=== PATIENT | male | born 1950 | race Caucasian/White ===

== ENCOUNTER 2018-07-22 20:13 | Inpatient (IN) | payer MEDICARE, BC ==
[~2018-07-22] VITALS: Ht 185.4 cm; Wt 66.0 kg
--- NOTE | 2018-07-22 20:15 | NUR ---
BIBA [facility] FOR ABNORMAL CXR SHOWS PNA, FEVER W/ LOW 02 SAT ON RA 88%. NAD NOTED. PT AAO X4, DOES NOTE SOME SOB, BUT STATES HX OF COPD. 2L NC PLACED ON PT. NO OTHER COMPLAINTS.
--- NOTE | 2018-07-22 20:36 | NUR ---
BLOOD DRAWN SENT TO LAB
[2018-07-22] MEDS ORDERED: ALBUTEROL FS 2.5 MG/3 ML VIAL.NEB NEB ONE (21:30)
[2018-07-22] MEDS ORDERED: IPRATROPIUM NEB FS 0.5 MG/2.5 ML AMPUL.NEB NEB ONE (21:30)
--- NOTE | 2018-07-22 21:37 | NUR ---
PAGED RT FOR BREATHING TX
[2018-07-22] MEDS ORDERED: IPRATROPIUM NEB FS 0.5 MG/2.5 ML AMPUL.NEB ONE (21:56)
[2018-07-22] MEDS ORDERED: ALBUTEROL FS 2.5 MG/3 ML VIAL.NEB ONE (21:56)
[2018-07-22] MEDS ORDERED: AZITHROMYCIN 250 MG TABLET PO ONE (22:00)
[2018-07-22] MEDS ORDERED: SULFAMETHOXAZOLE IV ONE (22:00)
[2018-07-22] MEDS ORDERED: CEFTRIAXONE 1GM BAG (ER ONLY) 1 GM/50 ML PIGGYBACK IV ONE (22:00)
[2018-07-22] MEDS ORDERED: TRIMETHOPRIM IV ONE (22:00)
[2018-07-22] MEDS ORDERED: D5W IV ONE (22:00)
[2018-07-22 22:03] LABS: CALCIUM, SERUM 8.2 mg/dL (8.5-10.1); CARBON DIOXIDE 34 mmol/L (21-32); CHLORIDE 87 mmol/L (98-107); CREATININE 0.8 mg/dL (0.6-1.3); GLUCOSE 96 mg/dL (74-106); SODIUM SERUM 124 mmol/L (136-145); UREA NITROGEN, BLOOD 16 mg/dL (7-18)
[2018-07-22 22:04] LABS: BASOPHILS % (AUTO) 0.5 % (0.0-2.0); EOSINOPHILS % (AUTO) 2.1 % (0.0-6.0); HEMATOCRIT 33 % (39-51); HEMOGLOBIN 10.9 g/dL (13.5-17.5); LYMPHOCYTES % (AUTO) 16.7 % (20.0-44.0); MEAN CORPUSCULAR HGB CONC 33 g/dl (31.0-36.0); MEAN CORPUSCULAR VOLUME 90 fL (80-96); MONOCYTES # (AUTO) 0.8 /CMM (0.1-1.30); MONOCYTES % (AUTO) 13.1 % (2.0-12.0); NEUTROPHILS # (AUTO) 4.2 /CMM (1.8-8.9); NEUTROPHILS % (AUTO) 67.6 % (43.0-81.0); PLATELET COUNT (AUTO) 291 /CMM (150-450); RED BLOOD CELL COUNT(AUTO) 3.65 MIL/uL (4.5-6.0); WHITE BLOOD COUNT (AUTO) 6.3 K/uL (4.3-11.0)
[2018-07-22] MEDS ORDERED: CEFTRIAXONE 1GM BAG (ER ONLY) 50 ML IV ONE (22:07)
[2018-07-22] MEDS ORDERED: AZITHROMYCIN 500 MG VIAL ONE (22:07)
[2018-07-22] MEDS ORDERED: SULFAMETHOXAZOLE/TRIMETHOPRIM 10 ML VIAL IV ONE (22:07)
[2018-07-22] MEDS ORDERED: AZITHROMYCIN 250 MG TABLET ONE (22:08)
[2018-07-22 22:16] LABS: ALANINE AMINOTRANSFERASE 16 U/L (12-78); ALBUMIN 2.7 g/dL (3.4-5.0); ALKALINE PHOSPHATASE 95 U/L (46-116); ASPARTATE AMINOTRANSFERASE 28 U/L (15-37); B-TYPE NATRIURETIC PEPTIDE 551 PG/ML (0-125); BILIRUBIN,DIRECT 0.1 mg/dL (0.0-0.2); BILIRUBIN,TOTAL 0.4 mg/dL (0.2-1.0); TOTAL PROTEIN, SERUM 6.5 g/dL (6.4-8.2)
--- NOTE | 2018-07-22 22:53 | NUR ---
PAGED FOR DR SCHILLING AND ADV DR WILL CALL BACK
[2018-07-22] MEDS ORDERED: ALBU18HF2 INH (22:58)
[2018-07-22] MEDS ORDERED: DOCU-141 PO (22:58)
[2018-07-22] MEDS ORDERED: ARIP5TAB10 PO (22:58)
[2018-07-22] MEDS ORDERED: UMEC1BLS IH (22:58)
--- NOTE | 2018-07-22 22:59 | NUR ---
CALLED NURSE SUP FOR TELE BED
[2018-07-22] MEDS ORDERED: ACET325C5 PO (23:09)
[2018-07-22] MEDS ORDERED: MIRT15TA PO (23:09)
[2018-07-22] MEDS ORDERED: TRAM50TA PO (23:09)
[2018-07-22] MEDS ORDERED: MAG30ORA PO (23:09)
[2018-07-22] MEDS ORDERED: RITO100T PO (23:09)
[2018-07-22] MEDS ORDERED: NAPR-1192 PO (23:09)
[2018-07-22] MEDS ORDERED: CHOL200026 PO (23:09)
[2018-07-22] MEDS ORDERED: EMTR1TAB18 PO (23:09)
[2018-07-22] MEDS ORDERED: DARU600T2 PO (23:09)
[2018-07-22] MEDS ORDERED: BISA10SU61 RC (23:09)
[2018-07-22] MEDS ORDERED: ATOR10TA PO (23:09)
[2018-07-22] MEDS ORDERED: NA P133E RC (23:09)
[2018-07-22] MEDS ORDERED: ALEN70TA3 PO (23:09)
[2018-07-22] MEDS ORDERED: FAMO20TA8 PO (23:09)
[2018-07-22] MEDS ORDERED: DIVA250T PO (23:09)
[2018-07-22] MEDS ORDERED: GABA300C PO (23:09)
--- NOTE | 2018-07-22 23:23 | NUR ---
BED 307-2
--- NOTE | 2018-07-22 23:25 | NUR ---
CALLED APPLIED BEHAVIOR SPECIALIST W/ ROOM NUMBER
--- NOTE | 2018-07-22 23:55 | NUR ---
RECEIVED REPORT FROM EMILIO BURDEN FOR CANDE. PT BEING PREPARED FOR ADMISSION TO TELEMETRY
--- NOTE | 2018-07-22 23:57 | NUR ---
RN OPEN NOTES RECEIVED PATIENT FROM ER VIA NGOC. A/O X3. NO SIGNS OF DISTRESS OR DISCOMFORT. BREATHING EVEN AND UNLABORED. ON 2LPM 02 VIA NC. IV ACCESS IN RAC, PATENT AND INTACT, NO SIGNS OF REDNESS OR INFILTRATION. ORIENTED PATIENT TO UNIT AND ROOM. ATTACHED TO TELE MONITOR WITH SR W/BBB HR 77. NO SKIN ISSUES NOTED. BED IN LOW LOCKED POSITION WITH SIDE RAILS X2. CALL LIGHT WITHIN REACH. WILL CONTINUE TO MONITOR. PATIENT HAS POLST IN CHART THAT SAYS HE'S DNR/DNI DATED JUNE 2018 BUT PATIENT STATES HE WANTS TO BE FULL CODE AT THIS TIME. ORDER PUT IN FOR SS CONSULT TO FURTHER DISCUSS ADV. DIRECTIVE.
[2018-07-23] VITALS: BP_SYST 115; BP_SYST 126; BP_DIAS 67; BP_DIAS 75
[2018-07-23 04:00] VITALS: BP_SYST 115; BP_DIAS 65; BP_DIAS 67
[2018-07-23 06:21] LABS: BASOPHILS % (AUTO) 0.5 % (0.0-2.0); EOSINOPHILS % (AUTO) 3.6 % (0.0-6.0); HEMATOCRIT 32 % (39-51); LYMPHOCYTES # (AUTO) 0.8 /CMM (0.8-4.8); LYMPHOCYTES % (AUTO) 17.9 % (20.0-44.0); MEAN CORPUSCULAR HGB CONC 34 g/dl (31.0-36.0); MEAN CORPUSCULAR VOLUME 89 fL (80-96); MONOCYTES # (AUTO) 0.8 /CMM (0.1-1.30); MONOCYTES % (AUTO) 16.2 % (2.0-12.0); NEUTROPHILS # (AUTO) 2.9 /CMM (1.8-8.9); NEUTROPHILS % (AUTO) 61.8 % (43.0-81.0); PLATELET COUNT (AUTO) 258 /CMM (150-450); RED BLOOD CELL COUNT(AUTO) 3.65 MIL/uL (4.5-6.0); WHITE BLOOD COUNT (AUTO) 4.7 K/uL (4.3-11.0)
[2018-07-23 06:34] LABS: CALCIUM, SERUM 8.4 mg/dL (8.5-10.1); CREATININE 0.7 mg/dL (0.6-1.3); MAGNESIUM 1.7 mg/dL (1.8-2.4); PHOSPHORUS 3.2 mg/dL (2.5-4.9); POTASSIUM 5.1 mmol/L (3.5-5.1)
--- NOTE | 2018-07-23 06:44 | NUR ---
RN CLOSING NOTES PATIENT RESTING IN BED, EASILY AROUSABLE. A/O X3. NO SIGNS OF DISTRESS OR DISCOMFORT. BREATHING EVEN AND UNLABORED. ON 2LPM 02 VIA NC. IV ACCESS IN RAC, PATENT AND INTACT, NO SIGNS OF REDNESS OR INFILTRATION. ON TELE MONITOR WITH SR W/BBB HR 75. ALL NEEDS MET. NO SIGNIFICANT CHANGES THROUGH THE NIGHT. BED IN LOW LOCKED POSITION WITH SIDE RAILS X2. CALL LIGHT WITHIN REACH. WILL ENDORSE TO AM SHIFT FOR CANDE.
[2018-07-23] MEDS ORDERED: ALEN70TA6 PO (07:46)
[2018-07-23] MEDS ORDERED: MAGN400O6 PO (07:46)
[2018-07-23 08:00] VITALS: BP 130/81
[2018-07-23] MEDS: SULFAMETHOXAZOLE/TRIMETHOPRIM 20 ML in IV D5W 500 ML IV SCH ×3 (08:22→23:19)
[2018-07-23] MEDS ORDERED: ALBUTEROL FS 2.5 MG/3 ML VIAL.NEB NEB PRN (08:38)
[2018-07-23] MEDS: AZITHROMYCIN 250 MG TABLET PO SCH (08:54)
[2018-07-23] MEDS: ARIPIPRAZOLE 5 MG TABLET PO SCH (08:55)
[2018-07-23] MEDS: DOCUSATE SODIUM 100 MG CAPSULE PO SCH (08:55)
[2018-07-23] MEDS: FAMOTIDINE (20 MG) 20 MG TABLET PO SCH ×2 (08:55→17:51)
[2018-07-23] MEDS: GABAPENTIN 300 MG CAPSULE PO SCH ×2 (08:56→17:52)
[2018-07-23] MEDS: MAG HYDROX/AL HYDROX/SIMETH 30 ML UDC PO SCH (08:56)
[2018-07-23] MEDS ORDERED: MAGNESIUM HYDROXIDE 30 ML UDC PO PRN (09:00)
[2018-07-23] MEDS ORDERED: TRAMADOL HCL 50 MG TABLET PO PRN (09:00)
[2018-07-23] MEDS ORDERED: ACETAMINOPHEN 325 MG TABLET PO PRN (09:00)
[2018-07-23] MEDS ORDERED: NA PHOS,M-B/NA PHOS,DI-BA 1 EA ENEMA RC PRN (09:00)
[2018-07-23] MEDS ORDERED: BISACODYL SUPP (10 MG) 10 MG/SUPP.RECT SUPP.RECT RC PRN (09:00)
--- NOTE | 2018-07-23 10:30 | NUR ---
amrik fernandez mgr. contacting pt's facility to obtain hiv meds and depakote.
[2018-07-23] MEDS: NAPROXEN 375 MG TABLET PO SCH ×2 (11:14→17:52)
[2018-07-23] MEDS: Magnesium 1GM/D5W 100ML PREMIX 100 ML IV SCH ×2 (11:39→12:50)
--- NOTE | 2018-07-23 15:00 | NUR ---
hiv meds ritanovir,odefsy and depakote brought in. amrik fernandez mgr. contacting facility again to bring in other hiv med.
--- NOTE | 2018-07-23 15:03 | NUR ---
Social service consult requested by Drew Jesus DO for history of drug use and pt. coming from a rehab center. Pt. is a 68 year old male who was admitted to [facility] for pneumonia. SW met with pt. at bedside. Pt. was sitting up in the chair next to his bed. Pt. was alert and fully engaged during consultation. Pt. is oriented x 4. Pt. states that he is ambulatory with the use of a wheelchair or walker. SW inquired with pt. 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 . Pt. states he will return to the treatment center after he is discharged from [facility] for pnemonia. Pt. is originally from [facility] and lives there with his Nicolás Christianson . Pt.s is his primary emergency contact, and his sister Barby Carey is an additional emergency contact at . Pt. states he will be returning home to [place], [place], after he completes treatment in approximately 1 month. Pt. is very motivated to change his drug use behavior and states I am pallavi to have all the support. Pt. states that his is very supportive and comes down to visit him as much as his work allows. Pt. 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 Pt. also expressed that he receives a lot of support from a local community health center in [place], [address] , which helps coordinate his health and mental health services. Pt. states he has a history of depression and anxiety but it is under control with the services he receives at [facility]. Pt. denies suicidal ideation at this time. No other services needed at this time. SW is available if needed.
--- NOTE | 2018-07-23 15:26 | NUR ---
hiv med that's not here is amrik martínez to contact facility.
[2018-07-23 16:00] VITALS: BP 121/81
[2018-07-23] MEDS: methylPREDNISolone SOD SUCC 125 MG/2ML VIAL IV SCH (16:43)
--- NOTE | 2018-07-23 17:00 | NUR ---
mg repacement done.
[2018-07-23] MEDS ORDERED: FEE PK DOSING 1 MIN EA MC ONE (18:19)
--- NOTE | 2018-07-23 19:00 | NUR ---
papers signed for release of medical records however will need to be faxed tomorrow as med record office at [facility] closed.
--- NOTE | 2018-07-23 19:05 | NUR ---
MS RN NOTES RECEIVED PT IN BED AWAKE AND ABLE TO MAKE NEEDS KNOWN. A/O X3. RESPIRATIONS EVEN AND UNLABORED WITH NO S/S OF ACUTE DISTRESS OR SOB NOTED PT ON 2LPM 02 VIA NC TOLERATING WELL. IV ACCESS IN RAC, PATENT AND INTACT, NO SIGNS OF REDNESS OR INFILTRATION NOTED. SAFETY MEASURES IN PLACE WITH BED IN LOWEST LOCKED POSITION WITH SIDE RAILS UP X2. CALL LIGHT WITHIN REACH. WILL CONTINUE TO MONITOR.
--- NOTE | 2018-07-23 19:10 | NUR ---
pt. made aware that hiv meds to start tomorrow as one hiv med not here yet.
[2018-07-23 20:00] VITALS: BP 130/93
[2018-07-23] MEDS: MEROPENEM 1 G in IV NS 0.9% 100 ML IV SCH (20:09)
[2018-07-23] MEDS: VANCOMYCIN 1.25 GM in IV D5W 500 ML IV SCH (20:55)
[2018-07-23] MEDS: ATORVASTATIN 10 MG TABLET PO SCH (21:06)
[2018-07-23] MEDS: CHOLECALCIFEROL 1,000 UNIT TABLET (VIT D3) PO SCH (21:06)
[2018-07-23] MEDS: MIRTAZAPINE 15 MG TABLET PO SCH (21:06)
[2018-07-23] MEDS: DIVALPROEX SODIUM 125 MG CAP.SPRINK PO SCH (21:06)
[2018-07-23] MEDS ORDERED: SULFAMETHOXAZOLE/TRIMETHOPRIM 20 ML in IV D5W 500 ML IV SCH (22:00)
[2018-07-23] MEDS ORDERED: CEFTRIAXONE 1 G in IV D5W 50 ML IV SCH (22:00)
[2018-07-24 04:11] LABS: *BASOS 0 % (Not Estab.); *EOS 3 % (Not Estab.); *EOS, ABSOLUTE 0.2 x10E3/uL (0.0-0.4); *HCT 30.4 % (37.5-51.0); *HGB 10.3 g/dL (13.0-17.7); *IMMATURE GRANULOCYTES 1 % (Not Estab.); *LYMPHOCYTES 16 % (Not Estab.); *MCH 29.9 pg (26.6-33.0); *MCHC 33.9 g/dL (31.5-35.7); *MCV 88 fL (79-97); *MONOCYTES 15 % (Not Estab.); *NEUTROPHILS 65 % (Not Estab.); *NEUTROPHILS, ABSOLUTE 4.3 x10E3/uL (1.4-7.0); *PLT 288 x10E3/uL (150-379); *RBC 3.45 x10E6/uL (4.14-5.80); *RDW 16.3 % (12.3-15.4)
[2018-07-24] MEDS: MEROPENEM 1 G in IV NS 0.9% 100 ML IV SCH ×3 (06:00→21:31)
--- NOTE | 2018-07-24 06:37 | NUR ---
MS RN NOTES PT IN BED AWAKE AND ABLE TO MAKE NEEDS KNOWN. A/O X3. RESPIRATIONS EVEN AND UNLABORED WITH NO S/S OF ACUTE DISTRESS OR SOB NOTED THROUGHOUT SHIFT. PT ON 2LPM 02 VIA NC TOLERATING WELL. IV ACCESS IN RAC, PATENT AND INTACT, NO SIGNS OF REDNESS OR INFILTRATION NOTED. SAFETY MEASURES IN PLACE WITH BED IN LOWEST LOCKED POSITION WITH SIDE RAILS UP X2. PT KEPT CLEAN, DRY, AND COMFORTABLE. CALL LIGHT WITHIN REACH. WILL ENDORSE TO ONCOMING NURSE FOR CANDE.
[2018-07-24 07:21] LABS: CALCIUM, SERUM 8.9 mg/dL (8.5-10.1); CREATININE 0.7 mg/dL (0.6-1.3); MAGNESIUM 2.3 mg/dL (1.8-2.4); POTASSIUM 5.2 mmol/L (3.5-5.1)
[2018-07-24 08:00] VITALS: BP 115/81
--- NOTE | 2018-07-24 08:00 | NUR ---
MS RN OPENING NOTES Received Patient comfortable and sitting up on chair. A/O x 4. VS stable with no acute distress. Breathing even and unlabored on 2LPM via NC with no respiratory distress. Denies pain. PIV on RAC 18g clean, dry, intact and flushing well. Skin intact. Safety precautions in place. Bed locked and set in lowest position with side rails x 2 up. All needs rendered at this time. Will continue to monitor.
[2018-07-24] MEDS: VANCOMYCIN 1.25 GM in IV D5W 500 ML IV SCH ×2 (09:11→19:55)
[2018-07-24] MEDS: SULFAMETHOXAZOLE/TRIMETHOPRIM 20 ML in IV D5W 500 ML IV SCH ×3 (09:11→23:41)
[2018-07-24] MEDS: ARIPIPRAZOLE 5 MG TABLET PO SCH (09:15)
[2018-07-24] MEDS: FAMOTIDINE (20 MG) 20 MG TABLET PO SCH ×2 (09:15→16:39)
[2018-07-24] MEDS: GABAPENTIN 300 MG CAPSULE PO SCH ×2 (09:15→16:39)
[2018-07-24] MEDS: NAPROXEN 375 MG TABLET PO SCH ×2 (09:15→16:39)
[2018-07-24] MEDS: DIVALPROEX SODIUM 125 MG CAP.SPRINK PO SCH ×2 (09:16→21:05)
[2018-07-24] MEDS: AZITHROMYCIN 250 MG TABLET PO SCH (09:16)
[2018-07-24] MEDS: methylPREDNISolone SOD SUCC 125 MG/2ML VIAL IV SCH (09:17)
[2018-07-24] MEDS: MAG HYDROX/AL HYDROX/SIMETH 30 ML UDC PO SCH (09:17)
[2018-07-24] MEDS: FLUTICASONE/VILANTEROL 1 EACH BLST.W.DEV IH SCH (09:17)
[2018-07-24] MEDS: DOCUSATE SODIUM 100 MG CAPSULE PO SCH (09:20)
[2018-07-24 11:08] LABS: *% CD 4 POS. LYMPH 26.4 % (30.8-58.5); *% CD 8 POS. LYMPH 56.8 % (12.0-35.5); *ABSOLUTE CD 4 HELPER 264 /uL (359-1519); *ABSOLUTE CD 8 SUPPRESSOR 568 /uL (109-897); *CD4/CD8 RATIO 0.46 (0.92-3.72)
--- NOTE | 2018-07-24 12:24 | NUR ---
MS RN NOTES Patient accidentally removed PIV 18g on RAC while brushing teeth. Reinserted 20g PIV on RIGHT FOREARM x 1 attempt. Patient tolerated well. Denies pain. IV site clean, dry, intact and flushes well. Will resume IV ABX as ordered. Will continue to monitor.
--- NOTE | 2018-07-24 15:46 | NUR ---
MS RN NOTES Faxed Release of Medical Records Form to [facility] Medical Records Dept. at at this time. Will continue to monitor.
[2018-07-24 16:00] VITALS: BP 105/68
--- NOTE | 2018-07-24 16:08 | NUR ---
MS RN NOTES Received fax from Medical Records from [facility] at this time. Placed records flagged out in chart.
--- NOTE | 2018-07-24 19:10 | NUR ---
MS RN NOTE RECEIVED PT IN STABLE CONDITION, A&O X4, ABLE TO MAKE NEEDS KNOWN. CURRENTLY SITTING AT BEDSIDE. NO SIGNS OF SOB OR DISTRESS, NO C/O PAIN. ALL CURRENT NEEDS ATTENDED TO. BED LOW, LOCKED,UPPER RAILS UP, AND CALL LIGHT WITHIN REACH. WILL CONT. TO MONITOR.
--- NOTE | 2018-07-24 19:21 | NUR ---
MS RN CLOSING NOTES Patient comfortable and sitting up on bed. A/O x 4. VS stable with no acute distress. Breathing even and unlabored on 2LPM via NC with no respiratory distress. Denies pain at this time. 20g PIV on RIGHT FOREARM clean, dry, intact and flushing well. Skin intact. Safety precautions in place. Bed locked and set in lowest position with side rails x 2 up. All needs rendered at this time. Will endorse plan of care to oncoming shift.
[2018-07-24 19:31] LABS: OSMOLALITY,URINE 433 mOS/kg (340-1090)
[2018-07-24 19:33] LABS: URINE SODIUM, RANDOM 15 mmol/l (40-220)
[2018-07-24 20:00] VITALS: BP 103/69
[2018-07-24] MEDS: MIRTAZAPINE 15 MG TABLET PO SCH (21:06)
[2018-07-24] MEDS: ATORVASTATIN 10 MG TABLET PO SCH (21:06)
[2018-07-24] MEDS: CHOLECALCIFEROL 1,000 UNIT TABLET (VIT D3) PO SCH (21:06)
[2018-07-25] MEDS: VANCOMYCIN 1.25 GM in IV D5W 500 ML IV SCH ×3 (03:13→21:54)
[2018-07-25] MEDS: MEROPENEM 1 G in IV NS 0.9% 100 ML IV SCH ×3 (04:52→20:55)
--- NOTE | 2018-07-25 06:32 | NUR ---
MS RN NOTE PT IN STABLE CONDITION, A&O X4, ABLE TO MAKE NEEDS KNOWN. CURRENTLY RESTING IN BED. NO SIGNS OF SOB OR DISTRESS, NO C/O PAIN. ALL CURRENT NEEDS ATTENDED TO. BED LOW, LOCKED,UPPER RAILS UP, AND CALL LIGHT WITHIN REACH. WILL CONT. TO MONITOR AND ENDORSE TO NEXT SHIFT FOR CANDE.
--- NOTE | 2018-07-25 07:20 | NUR ---
MS RN OPENING NOTES RECEIVED PT IN BED, AWAKE, A/O X3-4. TOLERATING ROOM AIR, WITH NO ACUTE RESPIRATORY DISTRESS NOTED. PT DENIES PAIN. PT DENIES ANY QUESTIONS AND CONCERNS AT THIS MOMENT. PIV TO RFA G20, FLUSH WITH NS, INTACT AND PATENT. PT KEPT COMFORTABLE. PT'S BED IN LOWEST LOCKED POSITION WITH SR X2. CALL LIGHT KEPT WITHIN REACH. WILL CONTINUE PLAN OF CARE.
[2018-07-25 07:31] LABS: ALBUMIN 2.5 g/dL (3.4-5.0); BILIRUBIN,TOTAL 0.2 mg/dL (0.2-1.0); CALCIUM, SERUM 8.6 mg/dL (8.5-10.1); CREATININE 0.9 mg/dL (0.6-1.3); MAGNESIUM 2.2 mg/dL (1.8-2.4); PHOSPHORUS 2.2 mg/dL (2.5-4.9); POTASSIUM 5.2 mmol/L (3.5-5.1); TOTAL PROTEIN, SERUM 6.2 g/dL (6.4-8.2)
[2018-07-25 07:41] LABS: THYROID STIMULATING HORMONE 2.58 uIU/mL (0.358-3.74); URIC ACID 2.7 mg/dL (2.6-7.2)
[2018-07-25 07:42] LABS: HEMATOCRIT 32 % (39-51); HEMOGLOBIN 10.9 g/dL (13.5-17.5); LYMPHOCYTES # (AUTO) 0.6 /CMM (0.8-4.8); LYMPHOCYTES % (AUTO) 5.8 % (20.0-44.0); MEAN CORPUSCULAR HGB CONC 35 g/dl (31.0-36.0); MEAN CORPUSCULAR VOLUME 88 fL (80-96); MONOCYTES # (AUTO) 0.6 /CMM (0.1-1.30); MONOCYTES % (AUTO) 5.8 % (2.0-12.0); NEUTROPHILS # (AUTO) 9.1 /CMM (1.8-8.9); NEUTROPHILS % (AUTO) 88.4 % (43.0-81.0); PLATELET COUNT (AUTO) 354 /CMM (150-450); RED BLOOD CELL COUNT(AUTO) 3.57 MIL/uL (4.5-6.0); WHITE BLOOD COUNT (AUTO) 10.3 K/uL (4.3-11.0)
[2018-07-25 08:00] VITALS: BP 110/78
[2018-07-25] MEDS: FLUTICASONE/VILANTEROL 1 EACH BLST.W.DEV IH SCH (08:30)
[2018-07-25] MEDS: ARIPIPRAZOLE 5 MG TABLET PO SCH (08:31)
[2018-07-25] MEDS: DIVALPROEX SODIUM 125 MG CAP.SPRINK PO SCH ×2 (08:31→21:08)
[2018-07-25] MEDS: GABAPENTIN 300 MG CAPSULE PO SCH ×2 (08:31→16:14)
[2018-07-25] MEDS: DOCUSATE SODIUM 100 MG CAPSULE PO SCH (08:32)
[2018-07-25] MEDS: AZITHROMYCIN 250 MG TABLET PO SCH (08:32)
[2018-07-25] MEDS: FAMOTIDINE (20 MG) 20 MG TABLET PO SCH ×2 (08:32→16:14)
[2018-07-25] MEDS: methylPREDNISolone SOD SUCC 125 MG/2ML VIAL IV SCH (08:32)
[2018-07-25] MEDS: NAPROXEN 375 MG TABLET PO SCH ×2 (08:32→16:14)
[2018-07-25] MEDS: SULFAMETHOXAZOLE/TRIMETHOPRIM 20 ML in IV D5W 500 ML IV SCH ×2 (08:40→15:59)
[2018-07-25] MEDS: MAG HYDROX/AL HYDROX/SIMETH 30 ML UDC PO SCH (09:05)
[2018-07-25] MEDS ORDERED: K PHOS NEUTRAL 250 MG TABLET PO ONE (11:00)
[2018-07-25 16:00] VITALS: BP 107/69
--- NOTE | 2018-07-25 19:00 | NUR ---
MS RN CLOSING NOTES PT REMAINS IN BED, AWAKE, A/O X3-4. TOLERATING ROOM AIR, WITH NO ACUTE RESPIRATORY DISTRESS NOTED. PT DENIES PAIN.ALL NEEDS AND CARE PROVIDED. PIV TO RFA G20, FLUSH WITH NS, INTACT AND PATENT. PT KEPT COMFORTABLE. PT'S BED IN LOWEST LOCKED POSITION WITH SR X2. CALL LIGHT KEPT WITHIN REACH. WILL ENDORSE TO NIGHT NURSE FOR CANDE.
--- NOTE | 2018-07-25 19:10 | NUR ---
ms rn opening note. patient seen in bed. resting. bedside report recieved from akanksha puentes. poc reviewed questions concerns addressed. pateint assisted to chair verbalized understanding to call for assistance when ready to get back to bed.
[2018-07-25 20:05] VITALS: BP 95/62
[2018-07-25] MEDS: MIRTAZAPINE 15 MG TABLET PO SCH (22:06)
[2018-07-25] MEDS: ATORVASTATIN 10 MG TABLET PO SCH (22:06)
[2018-07-25] MEDS: CHOLECALCIFEROL 1,000 UNIT TABLET (VIT D3) PO SCH (22:06)
[2018-07-25] MEDS ORDERED: SULFAMETHOXAZOLE/TRIMETHOPRIM 10 ML VIAL IV ONE (23:02)
[2018-07-26] MEDS: SULFAMETHOXAZOLE/TRIMETHOPRIM 20 ML in IV D5W 500 ML IV SCH ×3 (00:05→15:18)
--- NOTE | 2018-07-26 00:06 | NUR ---
bactrim missing, . premix bactrim from pharmacy missing. bactrim prepared per orders and administered on schedule.
[2018-07-26] MEDS: VANCOMYCIN 1.25 GM in IV D5W 500 ML IV SCH ×2 (04:24→11:31)
[2018-07-26] MEDS: MEROPENEM 1 G in IV NS 0.9% 100 ML IV SCH ×2 (06:45→12:08)
--- NOTE | 2018-07-26 06:45 | NUR ---
RN CLOSING NOTE. PATIENT AWAKE, SITTING ON A CHAIR, A/O X4. TOLERATING ROOM AIR, WITH NO ACUTE RESPIRATORY DISTRESS NOTED. PT DENIES PAIN. PT DENIES ANY QUESTIONS AND CONCERNS AT THIS MOMENT. PIV TO RFA G20, INFUSING MEROPENEM PER ORDERS INTACT AND PATENT. NO S/S OF INFILTRATION CALL LIGHT IN REACH. VERBALIZED UNDERSTANDING TO CALL FOR ASSISTANCE NEEDED.
[2018-07-26 06:48] LABS: CALCIUM, SERUM 8.5 mg/dL (8.5-10.1); CREATININE 0.8 mg/dL (0.6-1.3); POTASSIUM 4.8 mmol/L (3.5-5.1)
--- NOTE | 2018-07-26 07:45 | NUR ---
MS RN OPENING NOTES RECEIVED PT IN BED, AWAKE, SITTING ON A CHAIR, A/O X3-4. TOLERATING ROOM AIR, WITH NO ACUTE RESPIRATORY DISTRESS NOTED. PT DENIES PAIN. PT DENIES ANY QUESTIONS AND CONCERNS AT THIS MOMENT. PIV TO RFA G20, FLUSH WITH NS, INTACT AND PATENT. PT KEPT COMFORTABLE. PT'S BED IN LOWEST LOCKED POSITION WITH SR X2. CALL LIGHT KEPT WITHIN REACH. WILL CONTINUE PLAN OF CARE.
[2018-07-26] MEDS: FLUTICASONE/VILANTEROL 1 EACH BLST.W.DEV IH SCH (08:38)
[2018-07-26] MEDS: DIVALPROEX SODIUM 125 MG CAP.SPRINK PO SCH (08:38)
[2018-07-26] MEDS: DOCUSATE SODIUM 100 MG CAPSULE PO SCH (08:38)
[2018-07-26] MEDS: ARIPIPRAZOLE 5 MG TABLET PO SCH (08:38)
[2018-07-26] MEDS: FAMOTIDINE (20 MG) 20 MG TABLET PO SCH ×2 (08:38→16:33)
[2018-07-26] MEDS: GABAPENTIN 300 MG CAPSULE PO SCH ×2 (08:38→16:33)
[2018-07-26] MEDS: MAG HYDROX/AL HYDROX/SIMETH 30 ML UDC PO SCH (08:38)
[2018-07-26] MEDS: NAPROXEN 375 MG TABLET PO SCH ×2 (08:39→16:33)
[2018-07-26] MEDS: methylPREDNISolone SOD SUCC 125 MG/2ML VIAL IV SCH (08:39)
[2018-07-26] MEDS: AZITHROMYCIN 250 MG TABLET PO SCH (08:39)
[2018-07-26 08:57] VITALS: BP 111/69
--- NOTE | 2018-07-26 11:39 | NUR ---
MS RN NOTES VANCO TROUGH WAS DRAWN WITH RESULT OF 23. DOSE HELD PER LVL. CN MADE AWARE. WILL CONTINUE TO MONITOR THE PT.
--- NOTE | 2018-07-26 19:21 | NUR ---
307-2 MS RN CLOSING NOTES PT TO DISCHARGE TO [facility]/SNF. PT DENIES ANY PAIN OR ANY DISCOMFORT. TOLERATING RA, WITH NO ACUTE RESPIRATORY DISTRESS NOTED. DISCHARGE INSTRUCTIONS AND INVENTORY LIST SIGNED BY PT. HOME MEDICATIONS RETURNED TO PT. ALL NEEDS AND CARE PROVIDED. REPORT GIVEN TO JANICE/RN AT [facility]. PT'S KEPT COMFORTABLE. PT'S BED IN LOWEST, LOCKED POSITION WITH SR X2. CALL LIGHT KEPT WITHIN REACH. PT ENDORSED TO DOOR CLOSER MECHANIC NURSE, AWAITING FOR AMBULANCE AND TO REMOVE PIV TO RFA.
--- NOTE | 2018-07-26 19:40 | NUR ---
RN OPENING NOTES RECEIVED REPORT FROM LUKE CANNON. Pt IS BEING DISCHARGED TONIGHT, WAITING FOR AMBULANCE TRANSPORT TO PICK HIM UP AND TRANSFER HIM TO [facility]. REPORT HAS ALREADY BEEN GIVEN BY LUKE CANNON TO JANICE AT [facility]. Pt IS A/OX4, VERBAL, ABLE TO MAKE NEEDS KNOWN. IV ACCESS ON RFA #20G, SL. WAITI Addendum: 07/26/18 at 2016 by ALTHEA OLIVEIRA RN WILL REMOVE IV ONCE AMBULANCE HAS ARRIVED FOR TRANSPORT.
--- NOTE | 2018-07-26 20:16 | NUR ---
NEUROLOGY PROFESSOR NOTES AMBULANCE HAS ARRIVED FOR TRANSPORT. Pt IS A/OX4, VERBAL, AND ABLE TO MAKE NEEDS KNOWN. NO S/S OF ACUTE DISTRESS OR SOB NOTED. ALL BELONGINGS WITH Pt AT BEDSIDE. ALL DISCHARGE PAPERS SIGNED & COPIED, PLACED IN CHART. EXIT CARE DONE. IV ACCESS ON RFA #20G REMOVED. SECURED WITH GAUZE & TAPE. NO SIGNS OF BLEEDING NOTED. ID BAND REMOVED. Pt IS BEING SAFELY TRANSFERRED TO THE AMBULANCE [facility]. Pt HAS REMAINED STABLE. NO C/O PAIN AT THIS TIME.
[2018-07-26] MEDS ORDERED: VANCOMYCIN 1.25 GM in IV D5W 500 ML IV SCH (22:00)
[2018-07-29 18:07] LABS: *HIV-1 RNA BY PCR <20 copies/mL (.)
[2018-07-30] MEDS ORDERED: ALENDRONATE 70 MG TABLET PO SCH (07:00)
== END 2018-07-26 20:20 | DRG 975 ==
LOC: ER 20:18 → TELE 23:34 → MED 07-23 10:39
PROVIDERS: ADMIT Internal Medicine; ATTEND Internal Medicine Nephrology
DX: J15.6 Pneumonia due to other Gram-negative bacteria (principal); B20 Human immunodeficiency virus [HIV] disease; J44.0 Chronic obstructive pulmonary disease with (acute) lower respiratory infection; E22.2 Syndrome of inappropriate secretion of antidiuretic hormone; K21.9 Gastro-esophageal reflux disease without esophagitis; E78.5 Hyperlipidemia, unspecified; Z87.01 Personal history of pneumonia (recurrent); Z87.891 Personal history of nicotine dependence; G89.4 Chronic pain syndrome; E86.1 Hypovolemia; M81.0 Age-related osteoporosis without current pathological fracture; F41.9 Anxiety disorder, unspecified; Z88.0 Allergy status to penicillin; F31.9 Bipolar disorder, unspecified; G62.9 Polyneuropathy, unspecified; Z79.899 Other long term (current) drug therapy
CPT/HCPCS: 36415; 70220-TC; 71045-TC; 71250-TC; 80048-TC; 80053-TC; 80076-TC; 80202-TC; 83605-TC; 83615-TC; 83735-TC; 83880; 83935-TC; 84100-TC; 84300-TC; 84443-TC; 84484-TC; 84550-TC; 85025-TC; 86360; 87040-TC; 87070-TC; 87081-TC; 87281; 87400; 87536; 94799-TC; G0378; J0456; J0696; J2185; J2930; J3370; J3475; J3490; J7030; J7040; J7050; J7060

== ENCOUNTER 2018-08-12 11:33 | Emergency (ER) | payer MEDICARE, BC ==
[~2018-08-12] VITALS: Ht 185.4 cm; Wt 79.4 kg
[~2018-08-12 11:33] MED LIST: ACET325C5 PO; ALBU18HF2 INH; ALEN70TA6 PO; ARIP5TAB10 PO; ATOR10TA PO; BISA10SU61 RC; CHOL200026 PO; DARU600T2 PO; DIVA250T PO; DOCU-141 PO; EMTR1TAB18 PO; FAMO20TA8 PO; GABA300C PO; MAG30ORA PO; MAGN400O6 PO; MIRT15TA PO; NA P133E RC; NAPR-1192 PO; RITO100T PO; TRAM50TA PO; UMEC1BLS IH
--- NOTE | 2018-08-12 12:00 | NUR ---
patient came in the ER from snf to r/o sub dural hematoma s/p fall last night. Connected to the monitor and pulse ox. kept comfortable, will continue to monitor accordingly.
--- NOTE | 2018-08-12 13:31 | NUR ---
CALLED FOR S AMBULANCE BACK TO [facility], ETA [phone], TRIP #[phone]
[2018-08-12 14:18] VITALS: BP 140/68
--- NOTE | 2018-08-12 14:19 | NUR ---
patient picked up by private ambulance via gurney in no apparent distress noted. Report given to Neena JHAVERI.
== END 2018-08-12 14:18 ==
LOC: ER 11:34
DX: S09.8XXA Other specified injuries of head, initial encounter (principal); E78.5 Hyperlipidemia, unspecified; J44.9 Chronic obstructive pulmonary disease, unspecified; K21.9 Gastro-esophageal reflux disease without esophagitis; M81.0 Age-related osteoporosis without current pathological fracture; F32.9 Major depressive disorder, single episode, unspecified; F41.9 Anxiety disorder, unspecified; G47.00 Insomnia, unspecified; G90.9 Disorder of the autonomic nervous system, unspecified; Z98.890 Other specified postprocedural states; Z88.0 Allergy status to penicillin; Z79.899 Other long term (current) drug therapy; W07.XXXA Fall from chair, initial encounter; Y93.89 Activity, other specified; Y92.89 Other specified places as the place of occurrence of the external cause; Y99.8 Other external cause status
CPT/HCPCS: 70450-TC; 72125-TC

== ENCOUNTER 2018-09-02 23:50 | Emergency (ER) | payer MEDICARE, BC ==
[~2018-09-02] VITALS: Ht 175.3 cm; Wt 68.0 kg
--- NOTE | 2018-09-03 00:18 | NUR ---
BIBS FOR C/O SOB AND PRODUCTIVE COUGH FOR THE PAST FESW DAYS. AFEBRILE. T: 98.1. NO C/O PAIN OR DISCOMFOR AT THIS TIME. PLACED ON A MONITOR, O2 SAT 98% ON 2LPM VIA NC . WILL CONT TO MONITOR ,
[2018-09-03] MEDS ORDERED: ALBUTEROL FS 2.5 MG/3 ML VIAL.NEB NEB ONE (00:30)
[2018-09-03] MEDS ORDERED: IPRATROPIUM NEB FS 0.5 MG/2.5 ML AMPUL.NEB NEB ONE ×3 (00:30→01:30)
[2018-09-03] MEDS ORDERED: predniSONE 20 MG TABLET PO ONE (00:30)
--- NOTE | 2018-09-03 00:33 | NUR ---
CALLED RT FOR BREATHING TX.
[2018-09-03] MEDS ORDERED: predniSONE 20 MG TABLET ONE (00:36)
[2018-09-03] MEDS ORDERED: ALBUTEROL FS 2.5 MG/3 ML VIAL.NEB ONE (00:37)
[2018-09-03] MEDS ORDERED: IPRATROPIUM NEB FS 0.5 MG/2.5 ML AMPUL.NEB ONE ×2 (00:37→02:05)
[2018-09-03] MEDS ORDERED: AZITHROMYCIN 250 MG TABLET ONE (00:39)
--- NOTE | 2018-09-03 00:59 | NUR ---
LEFT FOR CT
[2018-09-03] MEDS ORDERED: AZITHROMYCIN 250 MG TABLET PO ONE (01:00)
[2018-09-03] MEDS ORDERED: ALBUTEROL FS 2.5 MG/0.5 ML VIAL.NEB NEB ONE (01:30)
--- NOTE | 2018-09-03 01:55 | NUR ---
PT IN BED AWAKE AND ALERT. REPORTED FEELING BETTER, ASSISTED W/ URINAL. VSS. ON ONGOING MONITORING.
[2018-09-03] MEDS ORDERED: ALBUTEROL FS 2.5 MG/0.5 ML VIAL.NEB ONE (02:05)
--- NOTE | 2018-09-03 03:08 | NUR ---
CALLED [facility]; ETA [phone]; TRIP #[phone]
--- NOTE | 2018-09-03 04:12 | NUR ---
CALLED [facility] AND GAVE REPORT TO ED
--- NOTE | 2018-09-03 04:45 | NUR ---
patient was d/c'd back to the facility in stable condition. written nd verbal after care and Rx given to the pt/ paramedics . all vss upon d/c
[2018-09-03 04:52] VITALS: BP 127/80
== END 2018-09-03 04:52 | disposition home or self-care (01) ==
LOC: ER 23:53
DX: J44.9 Chronic obstructive pulmonary disease, unspecified (principal); R13.10 Dysphagia, unspecified; E78.5 Hyperlipidemia, unspecified; K21.9 Gastro-esophageal reflux disease without esophagitis; R53.1 Weakness; F31.9 Bipolar disorder, unspecified; F41.9 Anxiety disorder, unspecified; G47.00 Insomnia, unspecified; Z90.89 Acquired absence of other organs; Z98.890 Other specified postprocedural states; Z88.0 Allergy status to penicillin
CPT/HCPCS: 70450; 71045; 93005; 94640 ×2; 99284; J7512

== ENCOUNTER 2018-10-10 06:25 | Inpatient (IN) | payer MEDICARE, BC ==
[~2018-10-10] VITALS: Ht 175.3 cm; Wt 61.4 kg
--- NOTE | 2018-10-10 06:35 | NUR ---
PT BIBPA C/O UNWITNESSED GLF. PT AXO2. RESPIRATIONS EVEN AND UNLABORED. PT HAS ABRASION ON R FOREHEAD, MULTIPLE ABRASIONS ON L FOREARM, AND AN ABRASION ON R ELBOW. PT PUT ON THE CONTRACT ADMINISTRATION COORDINATOR AND PULSE OX.
--- NOTE | 2018-10-10 06:50 | NUR ---
20G LAC IV STARTED, LABS DRAWN, SENT WITH LAP MAKER.
[2018-10-10] MEDS ORDERED: IV NS 0.9% 1,000 ML BAG IV ONE (07:00)
[2018-10-10] MEDS ORDERED: TDAP [DIPH/PERTUSSIS/TET] 0.5 ML VIAL IM ONE ×2 (07:00→07:11)
[2018-10-10] MEDS ORDERED: BACI/NEOM/POLY B OINT PKT 1 UDPKT PACKET TP ONE (07:00)
--- NOTE | 2018-10-10 07:02 | NUR ---
WOUND CARE DONE BY EMT AND RN. WOUND CLEANSE WITH NS PAT DRY. BACITRACIN OINTMENT APPLIED. TELFA DRESSING AND WRAPPED WITH KERLIX ON L HAND, LFA, R ELBOW AND R FOREHEAD.
[2018-10-10 07:09] LABS: BASOPHILS % (AUTO) 0.8 % (0.0-2.0); EOSINOPHILS % (AUTO) 1.8 % (0.0-6.0); HEMATOCRIT 38 % (39-51); HEMOGLOBIN 12.7 g/dL (13.5-17.5); LYMPHOCYTES # (AUTO) 1.1 /CMM (0.8-4.8); LYMPHOCYTES % (AUTO) 21.5 % (20.0-44.0); MEAN CORPUSCULAR HGB CONC 34 g/dl (31.0-36.0); MEAN CORPUSCULAR VOLUME 93 fL (80-96); MONOCYTES # (AUTO) 0.5 /CMM (0.1-1.30); MONOCYTES % (AUTO) 10.2 % (2.0-12.0); NEUTROPHILS # (AUTO) 3.3 /CMM (1.8-8.9); NEUTROPHILS % (AUTO) 65.7 % (43.0-81.0); PLATELET COUNT (AUTO) 268 /CMM (150-450); RED BLOOD CELL COUNT(AUTO) 4.06 MIL/uL (4.5-6.0)
--- NOTE | 2018-10-10 07:22 | NUR ---
URINE SAMPLE COLLECTED AND SENT TO LAB.
[2018-10-10 07:25] LABS: ALANINE AMINOTRANSFERASE 25 U/L (12-78); ALBUMIN 3.3 g/dL (3.4-5.0); ALKALINE PHOSPHATASE 108 U/L (46-116); ASPARTATE AMINOTRANSFERASE 15 U/L (15-37); BILIRUBIN,DIRECT 0.1 mg/dL (0.0-0.2); BILIRUBIN,TOTAL 0.3 mg/dL (0.2-1.0); CARBON DIOXIDE 32 mmol/L (21-32); CHLORIDE 100 mmol/L (98-107); GLUCOSE 96 mg/dL (74-106); POTASSIUM 4.1 mmol/L (3.5-5.1); SODIUM SERUM 137 mmol/L (136-145); TOTAL PROTEIN, SERUM 6.4 g/dL (6.4-8.2); UREA NITROGEN, BLOOD 19 mg/dL (7-18)
--- NOTE | 2018-10-10 07:28 | NUR ---
XRAY AT BEDSIDE.
--- NOTE | 2018-10-10 07:34 | NUR ---
REPORT GIVEN TO LATRICE JHAVERI FOR CANDE.
--- NOTE | 2018-10-10 07:35 | NUR ---
REPORT RECEIVED FROM PETER JHAVERI FOR CANDE
--- NOTE | 2018-10-10 07:57 | NUR ---
CALLED [facility] OFFICE. MD LINARES.
--- NOTE | 2018-10-10 07:59 | NUR ---
SPOKE TO NURSING CLIENT DELIVERY SPECIALIST FOR BED REQUEST.
--- NOTE | 2018-10-10 08:11 | NUR ---
DR. WOODS CALLED AND SPOKE TO DR. SANCHEZ FOR ADMISSION
--- NOTE | 2018-10-10 08:24 | NUR ---
ROOM 323-2
[2018-10-10] MEDS ORDERED: LORA-259 PO (08:35)
[2018-10-10] MEDS ORDERED: RANI-655 PO (08:35)
[2018-10-10] MEDS ORDERED: FLUT1BLS IH (08:35)
[2018-10-10] MEDS ORDERED: LAMO25TA4 PO (08:35)
[2018-10-10] MEDS ORDERED: OLAN10TA3 PO (08:35)
[2018-10-10] MEDS ORDERED: TEMA15CA5 PO (08:35)
--- NOTE | 2018-10-10 08:40 | NUR ---
REPORT GIVEN TO MS TORREZ OF TELE UNIT
--- NOTE | 2018-10-10 09:00 | NUR ---
SHUTTLE ROUTE VEHICLE OPERATORGAME FARM SUPERVISOR NOTES PATIENT ADMITTED FROM ER REPORT GIVEN BY PAULINE JHAVERI. PATIENT ALERT ORIENTED X 2 WITH PERIOD OF CONFUSION. NO ACUTE DISTRESS NOTED, BREATHING UNLABORED, NO SOB NOTED. IV ACCESS PATENT AND INTACT, NO REDNESS OR SWELLING NOTED. ORIENTED TO THE ROOM. PLACE ON TELE MONITOR, SINUS RHYTHM. CALL LIGHT WITHIN REACH, SAFETY MEASURES IN PLACE. WILL CONTINUE TO MONITOR ACCORDINGLY.
[2018-10-10 09:30] VITALS: BP 131/70
--- NOTE | 2018-10-10 10:24 | NUR ---
MANAGER SHAREPOINT NOTES RECEIVED NEW ORDERS FROM DR JEREMY WOODS, DIAL MARKER FOR DR LYNCH, TO CONTINUE HOME MEDICATIONS, ECHOCARDIOGRAM, CAROTID DUPLEX IMAGING , PT EVAL AND REGULAR , TROPONIN X 2 Q6H FROM LAST TROPONIN. NOTED AND CARRIED OUT.
[2018-10-10] MEDS ORDERED: ALBUTEROL FS 2.5 MG/3 ML VIAL.NEB NEB PRN (11:00)
[2018-10-10] MEDS ORDERED: MAGNESIUM HYDROXIDE 30 ML UDC PO PRN (11:00)
[2018-10-10] MEDS ORDERED: BISACODYL SUPP (10 MG) 10 MG/SUPP.RECT SUPP.RECT RC PRN (11:00)
[2018-10-10] MEDS ORDERED: TEMAZEPAM 15 MG CAPSULE PO PRN (11:00)
[2018-10-10] MEDS ORDERED: LORAZEPAM 1 MG TABLET PO PRN (11:00)
[2018-10-10] MEDS ORDERED: NA PHOS,M-B/NA PHOS,DI-BA 1 EA ENEMA RC PRN (11:00)
[2018-10-10] MEDS ORDERED: ACETAMINOPHEN 325 MG TABLET PO PRN (11:30)
[2018-10-10] MEDS: LamoTRIgine 25 MG TABLET PO SCH ×2 (11:42→17:54)
[2018-10-10] MEDS: CHOLECALCIFEROL 1,000 UNIT TABLET (VIT D3) PO SCH (11:42)
[2018-10-10 12:00] VITALS: BP 128/70
[2018-10-10] MEDS: RITONAVIR 100 MG CAPSULE PO SCH ×2 (13:09→17:56)
[2018-10-10] MEDS ORDERED: Z GUARD REMEDY 2 OZ OINT TP PRN (13:30)
[2018-10-10 16:00] VITALS: BP 96/52
[2018-10-10] MEDS: NAPROXEN 375 MG TABLET PO SCH (17:54)
[2018-10-10] MEDS: OLANZAPINE 10 MG TABLET PO SCH (17:54)
--- NOTE | 2018-10-10 19:00 | NUR ---
INSPECTOR CRYSTAL NOTES PATIENT IN BED, HOB ELEVATED, ALERT ORIENTED X 2 WITH PERIOD OF CONFUSION.SITTER AT BEDSIDE. NO ACUTE DISTRESS NOTED, BREATHING UNLABORED, NO SOB NOTED. IV ACCESS PATENT AND INTACT, NO REDNESS OR SWELLING NOTED.DUE MEDICATIONS GIVEN, NO ASE NOTED.NEEDS ATTENDED AND ANTICIPATED. KEPT CLEAN DRY AND COMFORTABLE. CALL LIGHT WITHIN REACH, SAFETY MEASURES IN PLACE. WILL ENDORSE TO NIGHT NURSE FOR CONTINUITY OF CARE.
--- NOTE | 2018-10-10 19:30 | NUR ---
ELECTRICAL CONTROL ASSEMBLER OPENING NOTES RECEIVED PATIENT IN BED AWAKE, ALERT AND ORIENTED, X3, VERBALLY RESPONSIVE, ABLE TO MAKE NEEDS KNOWN. SITTER AT BEDSIDE FOR SAFETY. BREATHING EVEN AND UNLABORED. NO SOB NOTED. TOLERATING ROOM AIR. DENIES ANY PAIN OR DISCOMFORT. NO FACIAL GRIMACING. IV ON LEFT AC INTACT AND PATENT. SKIN DRY AND WARM TO TOUCH. SINUS TACH ON TELE MONITOR. ALL DRESSINGS CLEAN DRY AND INTACT. ALL OTHER NEEDS MET. SAFETY MEASURES IN PLACE. CALL LIGHT WITHIN REACH. WILL CONTINUE TO MONITOR.
[2018-10-10 20:00] VITALS: BP 91/55
[2018-10-10 21:29] VITALS: BP 91/55
[2018-10-10] MEDS: ATORVASTATIN 10 MG TABLET PO SCH (21:46)
[2018-10-10] MEDS: FAMOTIDINE (20 MG) 20 MG TABLET PO SCH (21:46)
[2018-10-10] MEDS: MIRTAZAPINE 15 MG TABLET PO SCH (21:46)
--- NOTE | 2018-10-10 23:49 | NUR ---
WAREHOUSE MATERIAL HANDLER NOTES PATIENT COMPLAINED OF HEADACHE 4/. GIVEN TYLENOL 650MG. WILL CONTINUE TO MONITOR.
[2018-10-11] VITALS: BP 97/68
[2018-10-11 04:00] VITALS: BP 108/71
--- NOTE | 2018-10-11 06:00 | NUR ---
HEALTH SERVICES MANAGER NOTES ALL DRESSINGS CHANGED.
[2018-10-11 06:06] VITALS: BP_SYST 103; BP_SYST 118; BP_SYST 122; BP_DIAS 61; BP_DIAS 76; BP_DIAS 79
[2018-10-11 06:59] LABS: CALCIUM, SERUM 8.4 mg/dL (8.5-10.1); CREATININE 0.8 mg/dL (0.6-1.3); MAGNESIUM 1.7 mg/dL (1.8-2.4); POTASSIUM 4.5 mmol/L (3.5-5.1)
--- NOTE | 2018-10-11 07:09 | NUR ---
MICA WASHER GLUER CLOSING NOTES PATIENT RESTING IN BED. NO ACUTE CHANGES THROUGHOUT SHIFT. SITTER AT BEDSIDE FOR SAFETY. BREATHING EVEN AND UNLABORED. NO SOB NOTED. TOLERATING ROOM AIR. DENIES ANY PAIN OR DISCOMFORT. NO FACIAL GRIMACING. IV ON LEFT AC INTACT AND PATENT. SINUS ON TELE MONITOR. ALL DRESSINGS CLEAN DRY AND INTACT. ALL OTHER NEEDS MET. SAFETY MEASURES IN PLACE. CALL LIGHT WITHIN REACH. WILL ENDORSE TO ONCOMING NURSE FOR CANDE. .
[2018-10-11 07:13] LABS: BASOPHILS % (AUTO) 0.6 % (0.0-2.0); EOSINOPHILS % (AUTO) 1.7 % (0.0-6.0); HEMATOCRIT 38 % (39-51); HEMOGLOBIN 12.5 g/dL (13.5-17.5); LYMPHOCYTES # (AUTO) 1.1 /CMM (0.8-4.8); MEAN CORPUSCULAR HGB CONC 33 g/dl (31.0-36.0); MEAN CORPUSCULAR VOLUME 94 fL (80-96); MONOCYTES # (AUTO) 0.7 /CMM (0.1-1.30); MONOCYTES % (AUTO) 13.7 % (2.0-12.0); NEUTROPHILS # (AUTO) 3.1 /CMM (1.8-8.9); PLATELET COUNT (AUTO) 238 /CMM (150-450); WHITE BLOOD COUNT (AUTO) 5.1 K/uL (4.3-11.0)
[2018-10-11 08:00] VITALS: BP 108/51
--- NOTE | 2018-10-11 08:17 | NUR ---
HIDE WORKER OPENING NOTES Received Patient awake and watching TV in bed. A/O x 2-3 with episodes of confusion. VS stable with no acute distress. Breathing even and unlabored on room air with no respiratory distress. Denies pain. Telemonitor in place and operational reading Sinus Tach HR-107 with 1st Degree. 20g LAC clean, dry, intact and flushing well. Safety precautions in place. Bed locked and set to lowest position with side rails x 2 up. Sitter at bedside for safety. All needs rendered at this time. Will continue to monitor.
[2018-10-11] MEDS: FLUTICASONE/VILANTEROL 1 EACH BLST.W.DEV IH SCH (09:44)
[2018-10-11] MEDS: LamoTRIgine 25 MG TABLET PO SCH ×2 (09:45→18:18)
[2018-10-11] MEDS: RITONAVIR 100 MG CAPSULE PO SCH ×2 (09:45→18:19)
[2018-10-11] MEDS: DOCUSATE SODIUM 100 MG CAPSULE PO SCH (09:45)
[2018-10-11] MEDS: FAMOTIDINE (20 MG) 20 MG TABLET PO SCH ×2 (09:45→21:22)
[2018-10-11] MEDS: CHOLECALCIFEROL 1,000 UNIT TABLET (VIT D3) PO SCH (09:45)
[2018-10-11] MEDS: OLANZAPINE 10 MG TABLET PO SCH ×2 (09:45→17:00)
[2018-10-11] MEDS: NAPROXEN 375 MG TABLET PO SCH ×2 (09:45→18:19)
[2018-10-11] MEDS: Magnesium 1GM/D5W 100ML PREMIX 100 ML IV SCH ×2 (09:50→11:50)
[2018-10-11] MEDS: IV NS 0.9% 1,000 ML IV PRN (14:56)
[2018-10-11 16:00] VITALS: BP 126/75
--- NOTE | 2018-10-11 19:07 | NUR ---
MS RN CLOSING NOTES Patient awake and watching TV in bed. A/O x 3 with episodes of confusion. VS stable with no acute distress. Breathing even and unlabored on room air with no respiratory distress. Denies pain. 20g LAC clean, dry, intact and flushing well with NS running at 75ml/hr. Wound dressings clean, dry and intact. Safety precautions in place. Bed locked and set to lowest position with side rails x 3 up. Sitter at bedside for safety. All needs rendered at this time. Will endorse plan of care to oncoming shift.
[2018-10-11 19:08] VITALS: BP 103/68
--- NOTE | 2018-10-11 19:32 | NUR ---
RN MS OPENING NOTES RECEIVED PATIENT IN BED AWAKE, ALERT AND ORIENTED, X3, VERBALLY RESPONSIVE, ABLE TO MAKE NEEDS KNOWN. SITTER AT BEDSIDE FOR SAFETY. BREATHING EVEN AND UNLABORED. NO SOB NOTED. TOLERATING ROOM AIR. DENIES ANY PAIN OR DISCOMFORT. NO FACIAL GRIMACING. IV ON LEFT AC INTACT AND PATENT WITH IVF INFUSING. SKIN DRY AND WARM TO TOUCH. ALL DRESSINGS CLEAN DRY AND INTACT. ALL OTHER NEEDS MET. SAFETY MEASURES IN PLACE. CALL LIGHT WITHIN REACH. WILL CONTINUE TO MONITOR.
[2018-10-11] MEDS: MIRTAZAPINE 15 MG TABLET PO SCH (21:22)
[2018-10-11] MEDS: ATORVASTATIN 10 MG TABLET PO SCH (21:22)
--- NOTE | 2018-10-11 22:15 | NUR ---
RN MS NOTES TRANSFERRED CANDE TO EMILIO EDDY. ALL DUE MEDS GIVEN. VSS. PATIENT IN STABLE CONDITION. SITTER AT BEDSIDE FOR SAFETY.
--- NOTE | 2018-10-11 22:30 | NUR ---
RN NOTES RECEIVED PATIENT AWAKE, RESTING COMFORTABLY ALERT ORIENTED X1, SITTER AT BEDSIDE, SAFETY MEASURES IN PLACE, ASPIRATION PRECAUTION EMPHASIZED, IV ACCESS INTACT AND PATENT, FLUIDS INFUSING WELL, ALL NEEDS ATTENDED, WILL CONTINUE TO MONITOR ACCORDINGLY.
[2018-10-12] MEDS: IV NS 0.9% 1,000 ML IV PRN (04:23)
[2018-10-12 07:05] LABS: CALCIUM, SERUM 8.5 mg/dL (8.5-10.1); CREATININE 0.8 mg/dL (0.6-1.3); MAGNESIUM 1.9 mg/dL (1.8-2.4); POTASSIUM 4.9 mmol/L (3.5-5.1)
--- NOTE | 2018-10-12 07:15 | NUR ---
RN NOTES ALL NEEDS ATTENDED AND MET, SITTER STAYED AT BEDSIDE THROUGHOUT THE NIGHT, REPOSITIONED FOR COMFORT, SLEPT COMFORTABLY NO SIGNS OF ACUTE DISTRESS NOTED, WILL ENDORSE TO AM NURSE FOR CONTINUITY OF CARE.
[2018-10-12 07:25] LABS: BASOPHILS % (AUTO) 0.7 % (0.0-2.0); EOSINOPHILS % (AUTO) 1.1 % (0.0-6.0); HEMATOCRIT 38 % (39-51); HEMOGLOBIN 12.3 g/dL (13.5-17.5); LYMPHOCYTES # (AUTO) 1.1 /CMM (0.8-4.8); LYMPHOCYTES % (AUTO) 20.2 % (20.0-44.0); MEAN CORPUSCULAR HGB CONC 33 g/dl (31.0-36.0); MEAN CORPUSCULAR VOLUME 94 fL (80-96); MONOCYTES # (AUTO) 0.7 /CMM (0.1-1.30); MONOCYTES % (AUTO) 13.9 % (2.0-12.0); NEUTROPHILS # (AUTO) 3.5 /CMM (1.8-8.9); NEUTROPHILS % (AUTO) 64.1 % (43.0-81.0); PLATELET COUNT (AUTO) 251 /CMM (150-450); RED BLOOD CELL COUNT(AUTO) 4.01 MIL/uL (4.5-6.0); WHITE BLOOD COUNT (AUTO) 5.4 K/uL (4.3-11.0)
[2018-10-12 08:00] VITALS: BP 118/78
--- NOTE | 2018-10-12 08:00 | NUR ---
MS RN OPENING NOTES Received Patient awake eating breakfast in bed. A/O x 3 with episodes of confusion. VS stable with no acute distress. Breathing even and unlabored on room air with no respiratory distress. Denies pain. 20g LAC clean, dry, intact and flushing well with NS running at 75ml/hr. Safety precautions in place. Bed locked and set to lowest position with side rails x 2 up. Sitter at bedside for safety. All needs rendered at this time. Will continue to monitor.
[2018-10-12] MEDS: FLUTICASONE/VILANTEROL 1 EACH BLST.W.DEV IH SCH (09:30)
[2018-10-12] MEDS: DOCUSATE SODIUM 100 MG CAPSULE PO SCH (09:30)
[2018-10-12] MEDS: LamoTRIgine 25 MG TABLET PO SCH ×2 (09:31→17:31)
[2018-10-12] MEDS: NAPROXEN 375 MG TABLET PO SCH ×2 (09:31→17:31)
[2018-10-12] MEDS: RITONAVIR 100 MG CAPSULE PO SCH ×2 (09:32→17:32)
[2018-10-12] MEDS: CHOLECALCIFEROL 1,000 UNIT TABLET (VIT D3) PO SCH (09:32)
[2018-10-12] MEDS: FAMOTIDINE (20 MG) 20 MG TABLET PO SCH (09:32)
[2018-10-12] MEDS: OLANZAPINE 10 MG TABLET PO SCH ×2 (09:33→17:32)
[2018-10-12 16:00] VITALS: BP 119/72
--- NOTE | 2018-10-12 19:07 | NUR ---
MS RN CLOSING NOTES Patient resting and watching TV in bed. A/O x 3 with episodes of confusion. VS stable with no acute distress. Breathing even and unlabored on room air with no respiratory distress. Denies pain. Safety precautions in place. Bed locked and set to lowest position with side rails x 2 up. Sitter at bedside for safety. All needs rendered at this time. Medication reconciliation and discharge orders reviewed and explained to Patient. Patient verbalized understanding. Will endorse discharge plan to oncoming shift.
--- NOTE | 2018-10-12 20:05 | NUR ---
MS RN NOTES RECEIVED PATIENT AWAKE IN BED WITH NO DISTRESS NOTED. CALL LIGHT WITHIN REACH. SITTER AT BEDSIDE. NO C/O PAIN OR DISCOMFORT. BED ALARM ON AND FUNCTIONING PROPERLY. BED IN LOW LOCK SETTING. ROOM FREE OF CLUTTER AND BELONGINGS KEPT NEAR BEDSIDE. WILL CONTINUE TO MONITOR.
--- NOTE | 2018-10-12 20:30 | NUR ---
PATIENT DISCHARGED TO HOME WITH [facility] AND PICKED UP BY . PATIENT IN STABLE CONDITION. ALL BELONGINGS TAKEN WITH PATIENT. DISCHARGE PACKET AND INSTRUCTIONS GIVEN TO AND VERBALIZED GOOD UNDERSTANDING. ALL DISCHARGE PAPER WORK SIGNED. PERIPHERAL LINE REMOVED AND TOLERATED WELL WITH NO ACTIVE BLEEDING NOTED. PATIENT ASSISTED TO FRONT LOBBY VIA WHEELCHAIR.
[2018-10-15] MEDS ORDERED: ALENDRONATE 70 MG TABLET PO SCH (07:30)
== END 2018-10-12 20:30 | disposition home health service (06) | DRG 640 ==
LOC: ER 06:29 → TELE 08:25 → MED 10-11 09:22
PROVIDERS: ADMIT Internal Medicine Nephrology; ATTEND Internal Medicine Nephrology
DX: E86.0 Dehydration (principal); N17.0 Acute kidney failure with tubular necrosis; Q78.2 Osteopetrosis; Z66 Do not resuscitate; I95.1 Orthostatic hypotension; E78.5 Hyperlipidemia, unspecified; F41.9 Anxiety disorder, unspecified; F31.9 Bipolar disorder, unspecified; R26.9 Unspecified abnormalities of gait and mobility; K21.9 Gastro-esophageal reflux disease without esophagitis; J44.9 Chronic obstructive pulmonary disease, unspecified; G62.9 Polyneuropathy, unspecified; G89.4 Chronic pain syndrome; E83.42 Hypomagnesemia; D64.9 Anemia, unspecified; Z87.891 Personal history of nicotine dependence; Z88.0 Allergy status to penicillin
CPT/HCPCS: 36415; 70450-TC; 71045-TC; 72125-TC; 72170-TC; 80048-TC; 80076-TC; 80305; 83735-TC; 84100-TC; 84484-TC; 85025-TC; 85730-TC; 87081-TC; 90715; 93307-TC; 93880-TC; 97116-TC; 97530-TC; 97535-TC; A6403; G0378; J3475; J7030; J7050